=== PATIENT | female | born 1985 | race Caucasian/White ===

== ENCOUNTER 2016-07-29 18:25 | Emergency (ER) | payer OTHER, MEDICAID ==
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
[2016-07-29 18:48] VITALS: RESP 19
[2016-07-29 18:54] LABS: % IMMATURE GRANULYOCYTES 0.4 % (0.0-1.1); ABSOLUTE IMMATURE GRANULOCYTES 0.03 10^3/uL (0.00-0.10); ADD DIFF? NO; ADD MORPH? NO; ADD SCAN? NO; ATYPICAL LYMPHOCYTE FLAG 10 (0-99); FRAGMENT RBC FLAG 0 (0-99); HEMATOCRIT 41.4 % (38.0-47.0); LEFT SHIFT FLG 0 (0-99); LIPEMIA HEMOLYSIS FLAG 90 (0-99); MEAN CELL HEMOGLOBIN CONCENTR. 33.8 g/dL (32.4-36.7); MEAN CELL VOLUME 97.6 fL (81.5-99.8); MEAN PLATELET VOLUME 10.5 fL (8.7-11.7); PLATELET CLUMPS FLAG 0 (0-99); PLATELET COUNT 253 10^3/uL (150-400); RED BLOOD CELL COUNT 4.24 10^6/uL (4.18-5.33); RED CELL DISTRIBUTION WIDTH 13.8 % (11.5-15.2)
[2016-07-29 19:20] LABS: ANION GAP 18 mEq/L (8-16); CALCIUM 9.8 mg/dL (8.5-10.4); CARBON DIOXIDE 25 mEq/l (22-31); CHLORIDE 107 mEq/L (97-110); CREATININE 0.8 mg/dL (0.6-1.0); GLOMERULAR FILTRATION RATE > 60; GLUCOSE 73 mg/dL (70-100); POTASSIUM 3.4 mEq/L (3.5-5.2); SODIUM 150 mEq/L (134-144)
[2016-07-29 19:31] LABS: ETHANOL SERUM 295 mg/dL (0-10)
[2016-07-29 21:09] VITALS: BP 120/74; PULSE 96; TEMP 98.1; O2SAT 96
== END 2016-07-29 21:20 | disposition home or self-care (01) ==
LOC: EDUNIT#
DX: S69.92XA Unspecified injury of left wrist, hand and finger(s), initial encounter (principal); F10.129 Alcohol abuse with intoxication, unspecified; V46.5XXA Car driver injured in collision with other nonmotor vehicle in traffic accident, initial encounter; Y92.410 Unspecified street and highway as the place of occurrence of the external cause; Y99.8 Other external cause status; Y93.89 Activity, other specified
CPT/HCPCS: G0480; L3908

== ENCOUNTER 2016-08-21 11:43 | Emergency (ER) | payer MEDICAID, OTHER ==
[2016-08-21 11:55] VITALS: BP 137/81; PULSE 79; RESP 16; TEMP 97.7; O2SAT 98
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
== END 2016-08-21 12:39 | disposition home or self-care (01) ==
DX: T74.11XA Adult physical abuse, confirmed, initial encounter (principal); Y08.89XA Assault by other specified means, initial encounter